=== PATIENT | female | born 1990 | race Caucasian/White ===

== ENCOUNTER 2016-06-26 04:59 | Inpatient (IN) | payer OTHER ==
[2016-06-26] VITALS (63 sets, daily range): BP systolic 98–139; BP diastolic 49–88; PULSE 66–118; RESP 16–20; TEMP 97.8–98.4
[~2016-06-26] VITALS: Ht 170.2 cm; Wt 117.9 kg
[2016-06-26] MEDS ORDERED: CALNTAB (05:47)
[2016-06-26] MEDS ORDERED: LACTATED RINGER'S 1000 ML INJ 1,000 ML IV SCH (05:50)
[2016-06-26] MEDS ORDERED: LACTATED RINGER'S 1000 ML INJ 1,000 ML IV PRN (05:50)
[2016-06-26] MEDS ORDERED: MINERAL OIL 10 ML VIAL TOPICAL PRN (06:00)
[2016-06-26] MEDS ORDERED: LIDOCAINE HCL 1% 50 ML VIAL INFIL PRN (06:00)
[2016-06-26] MEDS ORDERED: CITRIC ACID-SODIUM CITRATE LIQ 30 ML UDC PO SCH (06:00)
[2016-06-26] MEDS ORDERED: SODIUM CHLORID 0.9% 500 ML INJ 500 ML IV PRN (06:00)
[2016-06-26] MEDS ORDERED: OXYTOCIN 30 UNITS-500ML PREMIX 500 ML IV ONE (06:00)
[2016-06-26] MEDS ORDERED: ONDANSETRON HCL 4 MG/2 ML VIAL IV PRN (06:00)
[2016-06-26] MEDS ORDERED: LIDOCAINE HCL 1% 50 ML VIAL I-DERMAL PRN (06:00)
--- NOTE | 2016-06-26 06:03 | HHI.HP ---
HPI Travel History International Travel<30 Days: No Contact w/Intl Traveler<30Days: No Known Affected Area: No History of Present Illness HPI This patient is a 25-year-old 2 para 1001 EDC is June 28, 2015 presently at 39 weeks and 6 days presents the chief complaint of onset of contractions at 2:30 AM no ruptured membranes no vaginal bleeding the baby is active care is in [place] she denies any complications states her sugar test was normal she does not know her GBS all of her labs were normal all ultrasounds were normal History Past Medical History Narrative Medical No known drug allergies denies medical problems Obstetric History Obstetric History First baby born June 18, 2015 female infant weight 9 lbs. 12 oz. vaginal delivery uncomplicated she denies shoulder dystocia she was induced secondary to elevated blood pressure Past Surgical History Narrative Surgical No previous surgery Family History Family History: Negative Social History Alcohol Use: No Tobacco Use: No Substance Abuse: No Allergies-Medications (Allergen,Severity, Reaction): Coded Allergies: No Known Allergies (Unverified , 06/26/16) Home Meds Reported Medications Vitamin (Calna)1 Tab Tab 06/26/16 Review of Systems Gastrointestinal: Abdominal Pain Physical Exam Narrative GENERAL: Well-nourished, well-developed patient. Alert oriented 3 and cooperative in moderate distress secondary to uterine contractions SKIN: Warm and dry. HEAD: Normocephalic and atraumatic. EYES: No scleral icterus. No injection or drainage. ENT: No nasal drainage noted. Mucous membranes pink. Airway patent. NECK: Supple, trachea midline. No JVD. CARDIOVASCULAR: Regular rate and rhythm without murmurs, gallops, or rubs. RESPIRATORY: Breath sounds equal bilaterally. No accessory muscle use. ABDOMEN/GI: Gravid term estimated weight of 8 pounds Gravid to [-] weeks size term Fundal Height: [-] GENITOURINARY: External Genitalia: intact and normal in appearance BUS glands: [-] Cervix: [-] Midline soft Dilatation: [-] 5 cm Effacement: [-] 100% effaced Station: [-] -1 station Presentation: [-] Vertex Membranes: [intact Uterine Contractions: [-] q3 minute FHT's: Category: [-] 1 Baseline: [-] 140 Reactive: [-] + Variability: [-] Moderate Decels: [-]0 EXTREMITIES: No cyanosis or edema. 2+ reflexes NEUROLOGICAL: Awake and alert. Motor and sensory grossly within normal limits. Five out of 5 muscle strength in all muscle groups. Normal speech. Data Data Vital Signs Reviewed: Yes (blood pressure 116/69 pulse is 96 she is afebrile) Orders Ob (2e) Additional Admit Info (06/26/16 05:33) Admit To Inpatient (06/26/16 ) Code Status (06/26/16 05:50) Vital Signs (Adult) .Per protocol (06/26/16 05:50) ^ Heart (06/26/16 05:50) ^ Amnioinfusion (06/26/16 05:50) Urinary Catheter Management .ONCE (06/26/16 05:50) Diet Liquid (06/26/16 Breakfast) Lactated Ringer's 1000 Ml Inj (Lr 1000 M (06/26/16 05:50) Lactated Ringer's 1000 Ml Inj (Lr 1000 M (06/26/16 05:50) Sodium Chlorid 0.9% 500 Ml Inj (Ns 500 M (06/26/16 06:00) Sodium Chlor 0.9% 1000 Ml Inj (Ns 1000 M (06/26/16 06:10) Lidocaine 1% Inj (50 Ml) (Xylocaine 1% I (06/26/16 06:00) Citric Acid-Sodium Citrate Liq (Bicitra (06/26/16 06:00) Ondansetron Inj (Zofran Inj) (06/26/16 06:00) Fentanyl Inj (Fentanyl Inj) (06/26/16 06:00) Fentanyl Inj (Fentanyl Inj) (06/26/16 06:00) Complete Blood Count With Diff (06/26/16 05:50) Hold Clot (06/26/16 05:50) Abo/Rh Blood Type (06/26/16 05:50) Resp Oxygen Non Rebreathe Mask (06/26/16 ) ^ Epidural / Intrathecal Infus (06/26/16 05:50) Oxytocin 30 Units-500ml Premix (Pitocin (06/26/16 06:00) Lidocaine 1% Inj (50 Ml) (Xylocaine 1% I (06/26/16 06:00) Light Mineral Oil (Muri-Lube Oil) (06/26/16 06:00) Hepatitis Profile (06/26/16 05:53) Group B Strep Pcr (Rapid) (06/26/16 05:53) Ob/Psych Drug Screen, Urine (06/26/16 05:53) Rapid Plasma Regin (Rpr) W Ttr (06/26/16 05:53) Rubella Immune Status (06/26/16 05:53) Urinalysis - C+S If Indicated (06/26/16 05:53) Assessment/Plan Assessment and Plan 25-year-old at 39 weeks 6 days Active labor No local care No GBS status Plan; Admit IV fluid hydration CBC type and screen labs Patient desires epidural GBS [employer]SF[employer] MAN If positive we'll cover with penicillin Epidural anesthesia Anticipate vaginal delivery Simran Reis MD Jun 26, 2016 06:03
[2016-06-26] MEDS ORDERED: SODIUM CHLOR 0.9% 1000 ML INJ 1,000 ML IV PRN (06:10)
[2016-06-26 06:18] LABS: AUTOMATED NEUTROPHIL # 6.4 TH/MM3 (1.8-7.7); BASOPHIL % 0.3 % (0.0-2.0); EOSINOPHIL # 0.2 TH/MM3 (0-0.4); EOSINOPHIL % 1.9 % (0.0-4.0); HEMATOCRIT 34.5 % (35.0-46.0); HEMO FLAGS DIFF FINAL; LYMPH % 27.2 % (9.0-44.0); LYMPHOCYTE # 2.8 TH/MM3 (1.0-4.8); MEAN CELL VOLUME 86.5 FL (80.0-100.0); MEAN CORPUSCULAR HEMOGLOBIN 28.6 PG (27.0-34.0); MEAN CORPUSCULAR HGB CONC 33.1 % (32.0-36.0); MONO % 7.2 % (0.0-8.0); NEUT % 63.4 % (16.0-70.0); PLATELET COUNT 189 TH/MM3 (150-450); RED BLOOD COUNT 3.99 MIL/MM3 (4.00-5.30); RED CELL DISTRIBUTION WIDTH 14.2 % (11.6-17.2); WHITE BLOOD COUNT 10.1 TH/MM3 (4.0-11.0)
[2016-06-26] MEDS ORDERED: fentaNYL 2MCG-BUPIV 0.125% INJ 100 ML ONE (06:18)
[2016-06-26 06:21] LABS: BACTERIA, URINE FEW /hpf; BLOOD, URINE NEG (NEG); GLUCOSE,URINE NEG (NEG); KETONE, URINE NEG (NEG); MUCUS URINE FEW /lpf (OCC); NITRITE,URINE NEG (NEG); RENAL EPITHELIAL CELLS <1 /hpf; SQUAMOUS EPITHELIAL CELL URINE 2 /hpf (0-5); TRANSITIONAL EPI CELLS, URINE <1 /hpf; URINE COLOR LIGHT-YELLOW (YELLW/STRAW)
[2016-06-26 06:22] LABS: COMMENT (UR) CULT NOT INDICATED; CULTURE IF INDICATED CULT NOT INDICATED
[2016-06-26 06:29] LABS: AMPHETAMINE, URINE NEG (NEG); COCAINE, URINE NEG (NEG)
[2016-06-26 06:37] LABS: BARBITURATES, URINE NEG (NEG)
[2016-06-26] MEDS ORDERED: NO SYSTEM NARCOTICS XX PRN (07:15)
[2016-06-26] MEDS ORDERED: ePHEDrine/NS 25 MG/5 ML SYR IV PRN (07:15)
[2016-06-26] MEDS ORDERED: fentaNYL 2MCG-BUPIV 0.125% 100 ML EPIDURAL SCH (07:15)
[2016-06-26] MEDS ORDERED: DO NOT ADMINISTER ANTICOAGULANTS XX PRN (07:15)
[2016-06-26 09:22] LABS: RUBELLA IGG ANTIBODY 119.9 IU/mL (10.0-500.0); RUBELLA STATUS IMMUNE (IMMUNE)
--- NOTE | 2016-06-26 11:06 | PD.OB.DELI ---
Delivery Date: Jun 26, 2016 Anesthesia: Epidural Episiotomy: None Vaginal Delivery: Normal Presentation: Occiput posterior, Vertex Nuchal Cord: x1 Delayed cord clamping (45 sec): Yes : Male One Minute : 9 Five Minute : 9 Weight: 3840 grams Care: Spontaneous crying, Responded to stimulation Placenta: Spontaneous delivery, Intact, 3 vessel cord Laceration: No lacerations Additional Information 25-year-old now delivered at 39 weeks and 6 days gestation via vaginal delivery. Nuchal cord x1 reduced. Apgars were 9/9. Placenta delivered spontaneously and intact with 3 vessel cord. No vaginal lacerations. There was a very small hematoma along the inferior aspect of the vaginal introitus, pressure was applied for a few minutes and size did decrease. EBL < 500 cc. ( Dean Calderon MD R1) Attestation Vaginal delivery by resident supervised by me without complications (Kourtney Anderson MD) Dean Calderon MD R1 Jun 26, 2016 11:06 Kourtney Anderson MD Jun 26, 2016 11:41
[2016-06-26] MEDS ORDERED: ONDANSETRON ODT 4 MG TAB PO PRN (11:15)
[2016-06-26] MEDS ORDERED: SODIUM CHLORIDE 0.9% FLUSH 5 ML FLUSH IV SCH (11:15)
[2016-06-26] MEDS ORDERED: WITCH HAZEL 50%/GLYCERIN 12.5% 40 PAD JAR TOPICAL PRN (11:15)
[2016-06-26] MEDS ORDERED: ACETAMINOPHEN 325 MG TAB PO PRN (11:15)
[2016-06-26] MEDS ORDERED: ALUMINUM/MAGNESIUM/SIMETH 30 ML CUP PO PRN (11:15)
[2016-06-26] MEDS ORDERED: BENZOCAINE 20% TOPICAL SPRAY 60 ML CAN TOPICAL PRN (11:15)
[2016-06-26] MEDS ORDERED: SODIUM CHLORIDE 0.9% FLUSH 5 ML FLUSH IV PRN (11:15)
[2016-06-26] MEDS ORDERED: DOCUSATE SODIUM 50 MG/SENNA 8.6 MG TAB PO PRN (11:30)
[2016-06-26 14:32] LABS: RAPID PLASMA REAGIN SCREEN NON-REACTIVE (NON-REACTVE)
[2016-06-26] MEDS: IBUPROFEN 600 MG TAB PO PRN ×2 (15:46→22:11)
[2016-06-26] MEDS: DOCUSATE SODIUM 50 MG/SENNA 8.6 MG TAB PO PRN (15:46)
[2016-06-26] MEDS ORDERED: DIPHTH/TETANUS/ACEL PERTUSSIS (BOOSTER) 0.5 ML VIAL/PFS IM ONE (16:00)
[2016-06-26] MEDS ORDERED: MEASLES, MUMPS, RUBELLA VACCINE 0.5 ML VIAL SQ ONE (16:00)
[2016-06-26] MEDS ORDERED: ZOLPIDEM TARTRATE 5 MG TAB PO PRN (21:00)
--- NOTE | 2016-06-27 07:16 | HHI.OB ---
Subjective Post Day: 1 Remarks Patient seen and examined this morning. AFVSS overnight. day #1. She states Motrin has not been adequately treating her pain, she states her pain currently is at a 3/10 but can sometimes increase to a 6/10. She reports vaginal bleeding at the amount of her usual menstrual period. Denies dysuria or hematuria. No urinary issues. No breast tenderness. She is feeding the baby via formula; not planning to breastfeed. Appetite good. No nausea or vomiting. Ambulating well. Denies calf pain, shortness of breath, or cough. She otherwise has no other complaints or concerns this morning. She states she is in the process of finding a new OB. (Dean Calderon MD R1) Objective Vitals/I&O Vital Signs Date Time Temp Pulse Resp B/P Pulse Ox O2 Delivery O2 Flow Rate FiO2 06/26/16 20:20 97.8 81 20 126/85 06/26/16 16:40 18 06/26/16 13:30 82 18 100/56 06/26/16 13:30 98.4 06/26/16 12:20 18 06/26/16 12:16 83 128/71 06/26/16 12:01 80 133/71 06/26/16 11:49 18 06/26/16 11:46 74 126/75 06/26/16 11:36 18 06/26/16 11:35 76 06/26/16 11:35 131/81 06/26/16 11:31 76 06/26/16 11:18 83 131/78 06/26/16 11:17 89 06/26/16 11:16 18 06/26/16 11:02 18 06/26/16 11:02 18 06/26/16 11:01 116 139/80 06/26/16 11:01 116 139/80 06/26/16 10:25 87 06/26/16 10:20 88 06/26/16 10:16 92 130/86 06/26/16 10:15 16 06/26/16 10:15 92 06/26/16 10:00 85 06/26/16 10:00 95 127/88 06/26/16 09:55 71 111/83 06/26/16 09:40 106 06/26/16 09:35 115 06/26/16 09:31 97 101/71 06/26/16 09:30 99 06/26/16 09:00 115 06/26/16 09:00 104 103/63 06/26/16 08:40 80 06/26/16 08:35 94 06/26/16 08:35 94 102/62 06/26/16 08:31 79 104/49 06/26/16 08:30 87 06/26/16 08:25 118 06/26/16 08:23 18 06/26/16 08:20 88 06/26/16 08:15 88 06/26/16 08:15 74 110/62 06/26/16 08:10 91 06/26/16 08:05 78 06/26/16 08:01 81 98/57 06/26/16 08:00 83 06/26/16 07:55 102 06/26/16 07:50 95 06/26/16 07:45 96 06/26/16 07:40 89 06/26/16 07:35 80 06/26/16 07:31 87 120/62 06/26/16 07:30 93 06/26/16 07:25 88 06/26/16 07:25 90 125/75 06/26/16 07:21 81 108/69 06/26/16 07:20 96 Objective Remarks GENERAL: Well-nourished, well-developed patient. CARDIOVASCULAR: Regular rate and rhythm without murmurs, gallops, or rubs. RESPIRATORY: Breath sounds equal bilaterally. No accessory muscle use. ABDOMEN/GI: Abdomen soft, non-tender. Fundus: Firm, non-tender at umbilicus. GENITOURINARY: Light to moderate bleeding. EXTREMITIES: No cyanosis or edema, non-tender, without signs of DVT. Medications and IVs Current Medications Medications (Trade) Dose Ordered Sig/Jackie Route Start Time Stop Time Status Last Admin (NS Flush) 2 ml BID IV 06/26/16 11:15 (NS Flush) 2 ml UNSCH PRN IV 06/26/16 11:15 (Tylenol) 650 mg Q4H PRN PO 06/26/16 11:15 (Motrin) 600 mg Q6H PRN PO 06/26/16 11:15 06/26/16 22:11 (Americaine 20% Top Spr) 1 spray Q4H PRN TOPICAL 06/26/16 11:15 (Tucks Pads) 1 applic QID PRN TOPICAL 06/26/16 11:15 (Lenore-Colace) 2 tab Q12H PRN PO 06/26/16 11:15 06/26/16 15:46 (Ambien) 5 mg HS PRN PO 06/26/16 21:00 (Mag-Al Plus Susp Liq) 15 ml Q8H PRN PO 06/26/16 11:15 (Zofran Odt) 4 mg Q6H PRN PO 06/26/16 11:15 (Percocet 5-325 Mg) 1 tab Q4H PRN PO 06/26/16 11:30 (Dean Calderon MD R1) Assessment/Plan Problem List: (1) care following vaginal delivery Plan: 25 year old PPD#1. 1. Care - AFVSS - Encouraged OOB, as tolerated - Motrin or Percocet prn pain - Advised pelvic rest x 6 weeks - Formula-feeding - Contraception: desires Mirena IUD - Anticipate discharge tomorrow - Advised patient to follow up with OB provider regarding contraception and for continued care following discharge wdw Dr. Anderson (Dean Calderon MD R1) Attestation Agree with management plan (Kourtney Anderson MD) Dean Calderon MD R1 Jun 27, 2016 07:16 Kourtney Anderson MD Jun 27, 2016 08:19
[2016-06-27] MEDS: DOCUSATE SODIUM 50 MG/SENNA 8.6 MG TAB PO PRN (11:11)
[2016-06-27] MEDS: oxyCODONE/ACETAMINOPHEN 5 MG/325 MG TAB PO PRN ×3 (11:11→20:51)
[2016-06-27] MEDS: IBUPROFEN 600 MG TAB PO PRN ×2 (16:39→23:40)
[2016-06-27 20:50] VITALS: BP 130/86; PULSE 82; RESP 20
[2016-06-28] MEDS: oxyCODONE/ACETAMINOPHEN 5 MG/325 MG TAB PO PRN (04:21)
--- NOTE | 2016-06-28 07:54 | HHI.OB ---
Subjective Post Day: 2 Remarks day # 2. AFVSS overnight. Pain control. Decreased lochia. Denies dysuria. No breast tenderness. She is feeding the baby via bottle. Appetite good. No nausea or vomiting. Positive flatus. Negative bowel movement. Ambulating well. Denies calf pain, shortness of breath, or cough. Otherwise, she is doing well this morning and has no other complaints. Objective Vitals/I&O Vital Signs Date Time Temp Pulse Resp B/P Pulse Ox O2 Delivery O2 Flow Rate FiO2 06/27/16 20:50 82 20 130/86 Objective Remarks GENERAL: Well-nourished, well-developed patient. CARDIOVASCULAR: Regular rate and rhythm without murmurs, gallops, or rubs. RESPIRATORY: Breath sounds equal bilaterally. No accessory muscle use. ABDOMEN/GI: Abdomen soft, non-tender. Fundus: Firm, non-tender at umbilicus. GENITOURINARY: Light to moderate bleeding. EXTREMITIES: No cyanosis or edema, non-tender, without signs of DVT. Medications and IVs Current Medications Medications (Trade) Dose Ordered Sig/Jackie Route Start Time Stop Time Status Last Admin (NS Flush) 2 ml BID IV 06/26/16 11:15 (NS Flush) 2 ml UNSCH PRN IV 06/26/16 11:15 (Tylenol) 650 mg Q4H PRN PO 06/26/16 11:15 (Motrin) 600 mg Q6H PRN PO 06/26/16 11:15 06/27/16 23:40 (Americaine 20% Top Spr) 1 spray Q4H PRN TOPICAL 06/26/16 11:15 (Tucks Pads) 1 applic QID PRN TOPICAL 06/26/16 11:15 (Lenore-Colace) 2 tab Q12H PRN PO 06/26/16 11:15 06/27/16 11:11 (Ambien) 5 mg HS PRN PO 06/26/16 21:00 (Mag-Al Plus Susp Liq) 15 ml Q8H PRN PO 06/26/16 11:15 (Zofran Odt) 4 mg Q6H PRN PO 06/26/16 11:15 (Percocet 5-325 Mg) 1 tab Q4H PRN PO 06/26/16 11:30 06/28/16 04:21 Assessment/Plan Problem List: (1) care following vaginal delivery Plan: 25 year old PPD#2. 1. Care - AFVSS - Encouraged OOB, as tolerated - Motrin or Percocet prn pain - Advised pelvic rest x 6 weeks - Formula-feeding - Contraception: desires Mirena IUD - Anticipate discharge today - Advised patient to follow up with OB provider regarding contraception and for continued care following discharge wdw Dr. Suero Discharge Planning Discharged home today Twin Drake MD R2 Jun 28, 2016 07:54
[2016-06-28] MEDS ORDERED: IBUP-232 PO (07:58)
[2016-06-28] MEDS ORDERED: SENN1TAB PO (07:58)
--- NOTE | 2016-06-28 07:59 | HHI.DCPOC ---
Discharge Care Plan Diagnosis: (1) care following vaginal delivery Report Symptoms to Your Doctor -Temperate above 100.5 degrees -Redness, of incision or excessive or foul smelling drainage -Unusual pain or calf pain -Increased vaginal bleeding -Painful or difficulty urinating -Feelings of extreme sadness or anxiety after 2 weeks Goals to Promote Your Health * To prevent worsening of your condition and complications * To maintain your health at the optimal level Follow up with OB in 6 weeks Pelvic rest for 6 weeks Directions to Meet Your Goals Take your medications as prescribed Follow your dietary instruction Follow activity as directed Ensure plenty of rest for recovery Drink fluids for hydration Keep your appointments as scheduled Take your immunizations and boosters as scheduled If your symptoms worsen call your PCP, if no PCP go to Urgent Care Center or Emergency Room Smoking is Dangerous to Your Health. Avoid second hand smoke Call the 24-hour crisis hotline for domestic abuse at Twin Drake MD R2 Jun 28, 2016 07:59
[2016-06-28 08:00] VITALS: BP 101/64; PULSE 65; RESP 16; TEMP 98.3
[2016-06-29 07:23] LABS: BATH SALTS (MDPV) UR NEG (NEG); ECSTASY (MDMA) UR NEG (NEG); HEROIN (6-ACETYLMORPHINE) UR NEG (NEG); K2 SPICE UR NEG (NEG); OBMETHADONE UR NEG (NEG); PHENCYCLIDINE URINE NEG (NEG)
[2016-06-29 07:24] LABS: OXYCODONE (PERCODAN) NEG (NEG)
== END 2016-06-28 12:00 | disposition home or self-care (01) | DRG 775 ==
LOC: HOBED 04:59 → H2EB 05:36 → H1EA 12:51
PROVIDERS: ADMIT Obstetrics & Gynecology; ATTEND Obstetrics & Gynecology
PROC: 10E0XZZ Delivery of Products of Conception, External Approach (ICD-10-PCS; principal; 2016-06-26)
PROC: 00HU33Z Insertion of Infusion Device into Spinal Canal, Percutaneous Approach (ICD-10-PCS; 2016-06-26)
PROC: 3E0R3CZ (ICD-10-PCS; 2016-06-26)
DX: O69.81X0 Labor and delivery complicated by cord around neck, without compression, not applicable or unspecified (principal); O71.7 Obstetric hematoma of pelvis; Z3A.39 39 weeks gestation of pregnancy; Z37.0 Single live birth
CPT/HCPCS: 80074; 80307; 81001; 85025; 86592; 86762; 86900; 86901; 87081; 87150; 99285; G0481; J7120